=== PATIENT | male | born 1980 | race Caucasian/White ===

== ENCOUNTER 2017-05-16 08:08 | Inpatient (IN) | payer BC, OTHER ==
[~2017-05-16] VITALS: Ht 180.3 cm; Wt 72.6 kg
[~2017-05-16 08:08] MED LIST: DOXE50CA4 PO; GABA600T2 PO; PRAZ1CAP5 PO
[2017-05-19 14:42] LABS: *AMPHETAMINE, URINE POSITIVE (NEGATIVE); *BARBITURATE, URINE NEGATIVE (NEGATIVE); *CANNABINOID, URINE NEGATIVE (NEGATIVE); *COCCAINE, URINE NEGATIVE (NEGATIVE); *OPIATE, URINE NEGATIVE (NEGATIVE); *PHENCYCLIDINE SCREEN,URINE NEGATIVE (NEGATIVE)
[2017-05-19] MEDS ORDERED: LOPERAMIDE HCL 2 MG CAPSULE PO PRN ×2 (15:00)
[2017-05-19] MEDS ORDERED: METHOCARBAMOL 750 MG TABLET PO PRN (15:00)
[2017-05-19] MEDS ORDERED: THIAMINE HCL 200 MG/2 ML VIAL IM ONE (15:00)
[2017-05-19] MEDS ORDERED: DIAZEPAM 5 MG TABLET PO PRN (15:00)
[2017-05-19] MEDS ORDERED: IBUPROFEN 600 MG TABLET PO PRN (15:00)
[2017-05-19] MEDS ORDERED: ONDANSETRON 4 MG/2 ML VIAL IM PRN (15:00)
[2017-05-19] MEDS ORDERED: ACETAMINOPHEN 325 MG TABLET PO PRN (15:00)
[2017-05-19] MEDS ORDERED: DICYCLOMINE HCL 20 MG TABLET PO PRN (15:00)
[2017-05-19] MEDS ORDERED: CLONIDINE HCL 0.1 MG TABLET PO PRN (15:00)
[2017-05-19] MEDS ORDERED: BUPRENORPHINE HCL 2 MG TAB.SUBL SL PRN (15:00)
[2017-05-19] MEDS ORDERED: MIRALAX 17 GM POWD.PACK PO PRN (15:00)
[2017-05-19] MEDS ORDERED: ONDANSETRON ODT 4 MG TAB.RAPDIS SL PRN (15:00)
[2017-05-19] MEDS ORDERED: MAG HYDROX/AL HYDROX/SIMETH 30 ML LIQUID UDC PO PRN (15:00)
[2017-05-19] MEDS ORDERED: diphenhydrAMINE 50 MG CAPSULE PO PRN (15:00)
[2017-05-19] MEDS ORDERED: DIAZEPAM 10 MG TABLET PO PRN ×2 (15:00)
[2017-05-19] MEDS ORDERED: LORAZEPAM 2 MG/1 ML VIAL IM PRN (15:00)
--- NOTE | 2017-05-19 15:10 | NUR ---
PRE-ASSESSMENT: Pre-Assessment done at intake office, client is A/O x4, he presents with flat affect, anxious mood. Goose bumps, flushed face and moist skin. T 98, RR 18, BP 114/66, HR 94, spO2 @ 96% on RA, Pain generalized body aches 5/10. He is fully ambulatory. He denies any allergies; he denies any withdrawal-induced seizure. PMH: PTSD, Insomnia, Depression, Anxiety, tobbaco use. Past Surgical HX: Back Sx on 2012, Hernia repair at groin area on 2000 Medications taken at home Prazosin 2 mg HS PO Zoloft 50mg DAILY AM Doxepin 100mg HS PO Gabapentin 600 mg BID PO. Substance history buprenorphine 16 mg SL on a daily basis, last time used 05/18/17 @ 0430. Alcohol (vodka) 500 mL daily, last consumed 05/19/17 @ 0200. Ativan on an intermittent non-daily basis, last used 2 weeks ago. Methamphetamine IV smoked or snorted on a daily basis worth $50.00, last used on the day of present admission. PCP: Miguel Jacinto Discuss vital sighns Q4H, Urine drug screen and Blood drawn protocol, client verbalized understanding.
--- NOTE | 2017-05-19 15:35 | NUR ---
Admissions Note 37 year old male admitted to [facility] for withdrawal from alcohol, benzodiazepines, and buprenorphine. Client is oriented to unit, educated about protocols and how to work TV and call light in his room. Weight: 160 pounds. Height: 5'11" Client appears anxious, goose bumps and clammy skin, bilateral upper extremity with intact abcess over distal wrists at sites and R AC of IV drug use. Bilateral lung clear on auscultation, abdomen soft, non-tender, no edema noted. Clients voice is soft, he avoids eye contact. Client has NKA. Regular diet ordered. Full code status ordered. Client denies any history of seizures. LBM was 05/17/17, small/brown/hard. He refuses PNA vaccine at this time, stating he is afraid he might get sick because of it. He gives verbal consent for HIV. Client states that he lives with his in [place] Substance history buprenorphine 16 mg SL on a daily basis, last time used 05/18/17 @ 0430. Alcohol (vodka) 500 mL daily, last consumed 05/19/17 @ 0200. Ativan on an intermittent non-daily basis, last used 2 weeks ago. Methamphetamine IV smoked or snorted on a daily basis worth $50.00, last used on the day of present admission. He reports prior treatments here at [facility], last been May 30 to 2015, where he was discharged to [facility], he relapse shortle after. His longest period of sobriety was in 2016 for almost [address] Allen assessed client, Urine was collected upon admission. All safety measures instituted. Falll and seizure precaution. Call light within reach. Will continue to monitor.
[2017-05-19 16:00] VITALS: BP 119/73
[2017-05-19] MEDS: DIAZEPAM 10 MG TABLET PO SCH ×2 (16:28→21:00)
[2017-05-19] MEDS: BUPRENORPHINE HCL 2 MG TAB.SUBL SL SCH ×2 (16:30→21:00)
--- NOTE | 2017-05-19 19:30 | NUR ---
END OF SHIFT Client is in room, a/o x 4, he presents with anxious mood, flat affect. Last CIWA6/COWS 10 Call light within reach. He is on Fall, Seizure precautions. Endorsed to incoming nurse.
--- NOTE | 2017-05-19 19:31 | NUR ---
Start of shift note Received report from day shift nurse. Pt is a 37 yo male, A+Ox4, presenting to [facility] for Opiate/ETOH/Benzo/Meth dependence. Pt has NKA, is on Full Code status, and on Regular diet. Pt is on Fall and Seizure precautions. Pt has HX of PTSD, Insomnia, Depression, Back SX, and Groin area hernia repair. Pt is on 5 day Valium and 5 day Subutex tapers, tolerated well. No s/s of distress noted at this time. Respiations even and unlabored. Will continue to monitor.
[2017-05-19 20:11] VITALS: BP 118/73
[2017-05-19 20:26] LABS: BASOPHILS # (AUTO) 0.2 K/uL (0.0-8.0); BASOPHILS % (AUTO) 1.6 % (0.0-2.0); EOSINOPHILS # (AUTO) 0.2 K/uL (0.0-0.7); EOSINOPHILS % (AUTO) 2.4 % (0.0-7.0); HEMATOCRIT 39.9 % (40-50); HEMOGLOBIN 13.7 G/DL (14.0-18.0); LYMPHOCYTES # (AUTO) 3.2 K/UL (0.8-4.8); LYMPHOCYTES % (AUTO) 30.5 % (20.5-51.5); MEAN CORPUSCULAR HEMOGLOBIN 32.3 UUG (27.0-31.0); MEAN CORPUSCULAR HGB CONC 34 g/dL (32.0-37.0); MEAN CORPUSCULAR VOLUME 94.1 FL (82.0-92.0); MONOCYTES # (AUTO) 0.7 K/UL (0.1-1.30); MONOCYTES % (AUTO) 6.5 % (0.0-11.0); NEUTROPHILS # (AUTO) 6.1 K/UL (1.8-8.9); PLATELET COUNT (AUTO) 365 K/UL (150-450); RED BLOOD CELL COUNT(AUTO) 4.24 MIL/UL (4.7-6.1); WHITE BLOOD COUNT (AUTO) 10.4 K/UL (4.0-11.2)
[2017-05-19 20:32] LABS: ETHANOL < 3 MG/DL (0-0)
[2017-05-19 20:39] LABS: ALANINE AMINOTRANSFERASE 39 U/L (16-63); ALKALINE PHOSPHATASE 99 U/L (50-136); AMYLASE 43 U/L (25-115); ASPARTATE AMINOTRANSFERASE 42 U/L (15-37); BILIRUBIN,TOTAL 1.1 mg/dL (0.2-1.0); CARBON DIOXIDE 31 mmol/L (21-32); CHLORIDE 104 mmol/L (98-107); CREATININE 1.1 mg/dL (0.6-1.3); GLUCOSE 121 mg/dL (74-106); LIPASE 141 U/L (73-393); MAGNESIUM 2.1 mg/dL (1.8-2.4); POTASSIUM 3.5 mmol/L (3.5-5.1); TOTAL PROTEIN, SERUM 7.1 g/dL (6.4-8.2); UREA NITROGEN, BLOOD 19 mg/dL (7-18)
[2017-05-19] MEDS ORDERED: PATIENT MAY USE OWN MED- MD OK PO SCH ×2 (21:00)
[2017-05-20] MEDS: DOXEPIN 50 MG CAPSULE PO SCH ×2 (00:08→21:09)
[2017-05-20] MEDS: DOXYCYCLINE HYCLATE 100 MG TABLET PO SCH ×3 (00:08→21:09)
[2017-05-20] MEDS: GABAPENTIN 300 MG CAPSULE PO SCH ×4 (00:08→21:09)
[2017-05-20] MEDS: PRAZOSIN HCL 1 MG CAPSULE PO SCH ×2 (00:08→21:08)
[2017-05-20 00:14] VITALS: BP 107/66
--- NOTE | 2017-05-20 00:15 | NUR ---
PRN Subutex 4mg and Valium 10mg Pt c/o s/s of withdrawal with COWS: 12 and CIWA: 9. PRN Subutex 4mg and PRN Valium 10mg given and tolerated well. Will reassess within 1 HR. Will continue to monitor.
--- NOTE | 2017-05-20 01:11 | NUR ---
PRN Subutex 4mg and PRN Valium 10mg Reassessment Medications effective. Pt is resting well in bed. No s/s of ASE/distress noted at this time. Respirations even and unlabored. Will continue to monitor.
[2017-05-20 04:36] VITALS: BP 110/69
--- NOTE | 2017-05-20 07:00 | NUR ---
End of shift note Pt is a 37 yo male, A+Ox4, presenting to [facility] for Opiate/ETOH/Benzo/Meth dependence. Pt has NKA, is on Full Code status, and on Regular diet. Pt is on Fall and Seizure precautions. Pt has HX of PTSD, Insomnia, Depression, Back SX, and Groin area hernia repair. Pt is on 5 day Valium and 5 day Subutex tapers, tolerated well. Pt was given PRN Subutex 4mg and PRN Valium 10mg @0015. Pt slept for a total of 9 HRS. Last COWS: 3 and Last CIWA: 3 @0400. No s/s of distress noted at this time. Respirations even and unlabored. Will endorse to day shift nurse.
--- NOTE | 2017-05-20 08:00 | NUR ---
START OF SHIFT Rcvd endorsement from ongoing nurse, client is in room, a/o x4, he presents with anxious mood, flat affect, moist skin, flushed face. He reports restless legs, abdominal cramps and chills, no nausea or diarrhea. He denies any SI/HI. Client is on antibiotic PO therapy Vibramycin 100mg Q12H for infection on bilateral wrist and R AC. Encouraged client to increase fluid intake to facilitate detox. Encourage client to attend group therapy for skills to maintain sobriety. Client is a 37 yo male admitted for withdrawal from alcohol, benzodiazepines, and buprenorphine. He is on 5 day Diazepam / Subutex taper, tolerating well. Last CIWA 3 /COWS 3 @ 0400. He reports NKA, full code, regular diet. PRN @ 0015 Subutex 4mg and Valium 10mg for COWS 12, CIWA 9 respectively, noted effective COWS 3/CIWA3. Client slept 9 hrs. Client denies any history of withdrawal-induced seizure. He is on seizure precautions. Call light within reach. Side rails up x2/padded, bed locked and in low position.
[2017-05-20 08:14] VITALS: BP 107/75
[2017-05-20] MEDS: FOLIC ACID 1 MG TABLET PO SCH (08:27)
[2017-05-20] MEDS: MULTIVITAMINS,THERAPEUTIC TABLET PO SCH (08:27)
[2017-05-20] MEDS: DIAZEPAM 10 MG TABLET PO SCH ×3 (08:27→21:09)
[2017-05-20] MEDS: THIAMINE HCL 100 MG TABLET PO SCH (08:27)
[2017-05-20] MEDS: BUPRENORPHINE HCL 2 MG TAB.SUBL SL SCH ×3 (08:28→21:09)
--- NOTE | 2017-05-20 08:28 | NUR ---
TB administered to L forearm, client tolerated well.
[2017-05-20] MEDS ORDERED: TUBERCULIN,PURIF.PROT.DERIV. 5 TU/0.1 ML TEST ID ONE (09:00)
[2017-05-20] MEDS ORDERED: DIAZEPAM 10 MG TABLET PO SCH (09:00)
[2017-05-20] MEDS ORDERED: BUPRENORPHINE HCL 2 MG TAB.SUBL SL SCH (09:00)
[2017-05-20 12:55] VITALS: BP 108/61
--- NOTE | 2017-05-20 13:07 | NUR ---
MD Notification Client nodded off while sitting in bed, he hit his head on the drawer and got a superficial linear abrasion ~0.5cm L inner eyebrow, a couple of blood drops noted, cleanse with water, pat dry, client tolerated well.
[2017-05-20] MEDS: NEOMY/BACITRAC/POLYMI OINT 28.35 GM TUBE TOP SCH ×2 (13:34→16:01)
[2017-05-20 16:01] VITALS: BP 107/75
--- NOTE | 2017-05-20 17:10 | NUR ---
Dr. Allen and Dr. Jose notified of ECG results: Normal Sinus Rhythm. NNO at this time. Addendum: 05/20/17 at 1741 by ACACIA PICKERING RN wrong client
[2017-05-20] MEDS ORDERED: SERT50TA PO (17:23)
--- NOTE | 2017-05-20 18:57 | NUR ---
END OF SHIFT Client is a 37 yo male admitted for withdrawal from alcohol, benzodiazepines, and buprenorphine. He is on 5 day Diazepam / Subutex taper, tolerating well. Last CIWA 5 /COWS 6 @ 1600. Client reports some level of anxiety, chills and abdominal cramps. He reports NKA, full code, regular diet. Client is on triple antibiotic to L eyebrow superficial linear abrasion x 2 days. Client was not compliant with group therapy d/t withdrawal symptoms. Client denies any history of withdrawal-induced seizure. He is on seizure precautions. Call light within reach. Side rails up x2/padded, bed locked and in low position.
--- NOTE | 2017-05-20 19:15 | NUR ---
Start of shift note Received report from day shift nurse. Pt is a 37 yo male, A+Ox4, presenting to [facility] for Opiate/ETOH/Benzo/Meth dependence. Pt has NKA, is on Full Code status, and on Regular diet. Pt is on Fall and Seizure precautions. Pt has HX of PTSD, Insomnia, Depression, Back SX, and Groin area hernia repair. Pt is on 5 day Valium and 5 day Subutex tapers, tolerated well. No s/s of distress noted at this time. Respiations even and unlabored. Will continue to monitor.
[2017-05-20 20:10] VITALS: BP 106/73
[2017-05-21 00:28] VITALS: BP 124/73
[2017-05-21 04:29] VITALS: BP 118/71
--- NOTE | 2017-05-21 06:51 | NUR ---
End of shift note Pt is a 37 yo male, A+Ox4, presenting to [facility] for Opiate/ETOH/Benzo/Meth dependence. Pt has NKA, is on Full Code status, and on Regular diet. Pt is on Fall and Seizure precautions. Pt has HX of PTSD, Insomnia, Depression, Back SX, and Groin area hernia repair. Pt is on 5 day Valium and 5 day Subutex tapers, tolerated well. Pt slept for a total of 6 HRS. Last COWS: 1 and Last CIWA: 1 @0400. No s/s of distress noted at this time. Respirations even and unlabored. Will endorse to day shift nurse.
--- NOTE | 2017-05-21 07:15 | NUR ---
start of shift note: received pt from lime supervisor nurse, pt is in stable condition. no s/s of pain or discomfort. pt is admitted to [facility] for opiate/etoh/benzo withdrawal/dependence. pt's last cows 1 and ciwa 1. pt is tolerating taper medications well no a/r noted. will monitor pt for any changes and encourage pt to attend groups and activities
[2017-05-21 09:00] VITALS: BP 112/72
[2017-05-21] MEDS ORDERED: DIAZEPAM 10 MG TABLET PO SCH (09:00)
[2017-05-21] MEDS ORDERED: BUPRENORPHINE HCL 2 MG TAB.SUBL SL SCH ×2 (09:00)
[2017-05-21] MEDS: DIAZEPAM 5 MG TABLET PO SCH ×4 (09:18→21:19)
[2017-05-21] MEDS: THIAMINE HCL 100 MG TABLET PO SCH (09:18)
[2017-05-21] MEDS: FOLIC ACID 1 MG TABLET PO SCH (09:18)
[2017-05-21] MEDS: DOXYCYCLINE HYCLATE 100 MG TABLET PO SCH ×2 (09:18→21:19)
[2017-05-21] MEDS: SERTRALINE HCL 50 MG TABLET PO SCH (09:19)
[2017-05-21] MEDS: MULTIVITAMINS,THERAPEUTIC TABLET PO SCH (09:19)
[2017-05-21] MEDS: GABAPENTIN 300 MG CAPSULE PO SCH (09:19)
[2017-05-21] MEDS: NEOMY/BACITRAC/POLYMI OINT 28.35 GM TUBE TOP SCH (09:20)
--- NOTE | 2017-05-21 09:30 | NUR ---
PRN ADMINISTRATION: PT VERBALIZED HE IS NAUSEATED, AHKEEM BAILEY WAS ADMINISTRATED Addendum: 05/21/17 at 1926 by MAT BATEMAN RN ERROR: WRONG PT, THIS IS FOR PT IN 312
--- NOTE | 2017-05-21 10:30 | NUR ---
PRN RE-ASSESSMENT: PT VERBALIZED MEDICATION WAS EFFECTIVE, NO NAUSEA NOTED Addendum: 05/21/17 at 1927 by MAT BATEMAN RN ERROR IN CHARTING: FOR WRONG PT
[2017-05-21 11:10] LABS: HEPATITIS B SURFACE AG Negative (Negative)
[2017-05-21 12:30] VITALS: BP 119/80
[2017-05-21] MEDS: BUPRENORPHINE HCL 2 MG TAB.SUBL SL SCH ×2 (15:46→21:20)
[2017-05-21] MEDS: GABAPENTIN 400 MG CAPSULE PO SCH ×2 (15:46→21:18)
[2017-05-21 17:42] VITALS: BP 106/75
--- NOTE | 2017-05-21 19:00 | NUR ---
END OF SHIFT NOTE: PT IS IN STABLE CONDITION AT THIS TIME NO S/S OF PAIN OR DISCOMFORT. PT IS ADMITTED TO [facility] FOR OPIATE/ETOH/METH/BENZO WITHDRAWAL/DEPENDENCE. PT'S LAST COWS 3 AND CIWA 3. PT IS TOLERATING MEDICATIONS WELL. NO A/R NOTED WILL ENDORSE PT TO ENTRY LEVEL ACCOUNT EXECUTIVE NURSE.
--- NOTE | 2017-05-21 19:15 | NUR ---
START OF SHIFT Received 37 year old male patient admitted on 05/19/17 for ETOH, Ativan, Subutex and Methamphetamine dependency. Pt is full code with NKA. He reports a PMHx of PTDS, Insomnia, depression, tobacco use, surgical history, back surgery and hernia repair at groin area (2000). He reports Using Vodka 500 mg daily for 3 weeks. Last dose was 500 mL on 05/19/17. Ativan intermittently. Last dose was 2 weeks ago. Subutex 16 mg SL daily for 4 years. Last dose was 4 mg on 05/18/17. And Methamphetamine $50 (IV, S moke, Snort). Last dose was 05/19/17. Pt placed on 5 day Subutex and 5 day Valium taper started on 05/19/17 and tolerating well. Pt is alert and oriented x4, breathing is even and unlabored. Safety measures in place. Will continue to monitor.
[2017-05-21 20:00] VITALS: BP 101/75
[2017-05-21] MEDS: PRAZOSIN HCL 1 MG CAPSULE PO SCH (21:18)
[2017-05-21] MEDS: DOXEPIN 50 MG CAPSULE PO SCH (21:19)
--- NOTE | 2017-05-22 | NUR ---
VITALS REFUSED/COWS, CIWA DEFERRED 0000 vitals refused. COWS and CIWA deferred d/t pt lying in bed with eyes closed noted to be asleep. Respirations 16, breathing even and unlabored. Safety measures in place. Will continue to monitor.
--- NOTE | 2017-05-22 04:00 | NUR ---
VITALS REFUSED/COWS, CIWA DEFERRED 0400 vitals refused. COWS and CIWA deferred d/t pt lying in bed with eyes closed noted to be asleep. Respirations 16, breathing even and unlabored. Safety measures in place. Will monitor.
--- NOTE | 2017-05-22 07:13 | NUR ---
END OF SHIFT Pt is a 37 year old male patient admitted on 05/19/17 for ETOH, Ativan, Subutex and Methamphetamine dependency. Pt is full code with NKA. He reports a PMHx of PTDS, Insomnia, depression, tobacco use, surgical history, back surgery and hernia repair at groin area (2000). Pt continues on a 5 day Subutex and 5 day Valium taper started on 05/19/17 and tolerating well. He did not receive or request PRN medications. He slept a total of 8hrs, Intake: 795mL, Void: x1, BM:0, COWS:5, CIWA: 6. Pt remains alert and oriented x4, breathing is even and unlabored. Safety measures in place. Endorsed to oncoming shift.
--- NOTE | 2017-05-22 07:14 | NUR ---
Start of Shift Notes: Received patient in his room. Alert and verbally responsive. Oriented x 4. Able to make needs known. Respirations even and unlabored. No SOB noted. Skin warm and dry to touch. Abdomen soft and non-distended with (+) BS in all 4 quadrants. No complains of N/V/D or constipation noted. Voids independently. No complains of dysuria noted. Ambulatory ad gerard with steady gait. Patient is a 37 year old male admitted for opiate/ETOH dependence who was placed on a 5-day Valium and 5day Subutex taper as ordered. No adverse reactions noted. Taper was started on 05/19/2017. Has past medical hx of PTSD, insomnia, depression, back surgeries and hernia repair. Prior to admission, patient was using 16 mg of Subutex SL, and 500cc of Vodka, intermittent use of Ativan and $50.00 worth of Methamphetamine daily. NKA. FULL CODE. Regular diet. On fall and seizure precautions. On Vibramycin as ordered for biilaterl wrist and right AC cellulitis. Educated patient on the current plan of care for the day and her medication regimen. Encouraged oral fluid intake and encouraged group participation to learn new skills to prevent relapse. Siderails up and padded for safety. Call light kept in reach. Will continue to monitor closely.
[2017-05-22 08:00] VITALS: BP 116/74
[2017-05-22] MEDS: MULTIVITAMINS,THERAPEUTIC TABLET PO SCH (08:10)
[2017-05-22] MEDS: THIAMINE HCL 100 MG TABLET PO SCH (08:10)
[2017-05-22] MEDS: DOXYCYCLINE HYCLATE 100 MG TABLET PO SCH ×2 (08:10→21:39)
[2017-05-22] MEDS: GABAPENTIN 400 MG CAPSULE PO SCH ×2 (08:10→14:15)
[2017-05-22] MEDS: BUPRENORPHINE HCL 2 MG TAB.SUBL SL SCH ×3 (08:10→21:40)
[2017-05-22] MEDS: SERTRALINE HCL 50 MG TABLET PO SCH (08:11)
[2017-05-22] MEDS: DIAZEPAM 5 MG TABLET PO SCH ×3 (08:11→21:39)
[2017-05-22] MEDS: FOLIC ACID 1 MG TABLET PO SCH (08:15)
[2017-05-22] MEDS ORDERED: DIAZEPAM 5 MG TABLET PO SCH (09:00)
[2017-05-22] MEDS ORDERED: BUPRENORPHINE HCL 2 MG TAB.SUBL SL SCH ×2 (09:00→15:00)
[2017-05-22 12:00] VITALS: BP 123/78
[2017-05-22] MEDS ORDERED: HYDROXYZINE PAMOATE 25 MG CAPSULE PO PRN (15:30)
[2017-05-22] MEDS ORDERED: KETOROLAC TROMETHAMINE 30 MG INJ IM PRN (15:30)
[2017-05-22 16:00] VITALS: BP 115/86
--- NOTE | 2017-05-22 19:15 | NUR ---
START OF SHIFT Received 37 year old male patient admitted on 05/19/17 for ETOH, Ativan, Subutex and Methamphetamine dependency. Pt is full code with NKEmanuel. He reports a PMHx of PTSD, Insomnia, depression, tobacco use, [facility] He reports Using Vodka 500 mg daily for 3 weeks. Last dose was 500 mL on 05/19/17. Ativan intermittently. Last dose was 2 weeks ago. Subutex 16 mg SL daily for 4 years. Last dose was 4 mg on 05/18/17. And Methamphetamine $50 (IV, Smoke, Snort). Last dose was 05/19/17. Pt placed on 5 day Subutex and 5 day Valium taper started on 05/19/17 and tolerating well. Per endorsement, pt did not receive or request PRN medications. Pt is alert and oriented x4, breathing is even and unlabored. Safety measures in place. Will continue to monitor.
--- NOTE | 2017-05-22 19:17 | NUR ---
End of Shift Notes: Patient continues to be on 5-day Subutex and 5-day Valium taper as ordered. No adverse reactions noted. Patient is tolerating taper well. VS monitored closely q 4 hours. No significant abnormalities noted. Withdrawal symptoms were closely monitored. Patient presented with gross tremors, anxiety, nervousness, and muscle aches. Initial COWS 7/CIWA 7. Per patient, Subutex and Valium has been helping him with his withdrawal symptoms. Last COWS 4/CIWA 4. Compliant with care and treatment. Able to participate in activities and therapy sessions despite his withdrawal symptoms. Continues to be on Vibramycin as ordered for cellulitis to bilateral wrist. All needs met and attended. Call light kept in reach. Will continue to monitor.
[2017-05-22 20:00] VITALS: BP 109/80
[2017-05-22] MEDS: PRAZOSIN HCL 1 MG CAPSULE PO SCH (21:38)
[2017-05-22] MEDS: GABAPENTIN 300 MG CAPSULE PO SCH (21:38)
[2017-05-22] MEDS: DICYCLOMINE HCL 20 MG TABLET PO SCH (21:39)
[2017-05-22] MEDS: CLONIDINE HCL 0.1 MG TABLET PO SCH (21:39)
[2017-05-22] MEDS: DOXEPIN 50 MG CAPSULE PO SCH (21:40)
[2017-05-22] MEDS: BACLOFEN 10 MG TABLET PO SCH (21:40)
--- NOTE | 2017-05-23 04:00 | NUR ---
VITALS REFUSED/COWS, CIWA DEFERRED 0400 vitals refused. COWS and CIWA deferred d/t pt lying in bed with eyes closed noted to be asleep. Respirations 16, breathing even and unlabored. Safety measures in place. Will continue to monitor.
--- NOTE | 2017-05-23 07:10 | NUR ---
END OF SHIFT Pt is a 37 year old male patient admitted on 05/19/17 for ETOH, Ativan, Subutex and Methamphetamine dependency. Pt is full code with NKA. He reports a PMHx of PTSD, Insomnia, depression, tobacco use, surgical history, back surgery and hernia repair at groin area (2000). Pt continues on 5 day a Subutex and 5 day Valium taper started on 05/19/17 and tolerating well. Pt did not receive or request PRN medications. He slept a total of 7 hrs, Intake: 1500mL, Void: x2, BM:0. COWS: 5, CIWA: 4. Pt remains alert and oriented x4, breathing is even and unlabored. Safety measures in place. Endorsed to oncoming shift.
[2017-05-23 08:00] VITALS: BP 118/79
[2017-05-23] MEDS: DIAZEPAM 5 MG TABLET PO SCH ×2 (08:17→20:49)
[2017-05-23] MEDS: CLONIDINE HCL 0.1 MG TABLET PO SCH ×2 (08:17→20:49)
[2017-05-23] MEDS: BUPRENORPHINE HCL 2 MG TAB.SUBL SL SCH ×2 (08:17→20:49)
[2017-05-23] MEDS: BACLOFEN 10 MG TABLET PO SCH ×3 (08:17→20:49)
[2017-05-23] MEDS: SERTRALINE HCL 50 MG TABLET PO SCH (08:18)
[2017-05-23] MEDS: THIAMINE HCL 100 MG TABLET PO SCH (08:18)
[2017-05-23] MEDS: MULTIVITAMINS,THERAPEUTIC TABLET PO SCH (08:18)
[2017-05-23] MEDS: GABAPENTIN 300 MG CAPSULE PO SCH ×3 (08:18→20:48)
[2017-05-23] MEDS: FOLIC ACID 1 MG TABLET PO SCH (08:18)
[2017-05-23] MEDS: DICYCLOMINE HCL 20 MG TABLET PO SCH ×3 (08:18→20:49)
[2017-05-23] MEDS: DOXYCYCLINE HYCLATE 100 MG TABLET PO SCH ×2 (08:18→20:49)
[2017-05-23] MEDS ORDERED: DIAZEPAM 5 MG TABLET PO SCH (09:00)
[2017-05-23] MEDS ORDERED: BUPRENORPHINE HCL 2 MG TAB.SUBL SL SCH (09:00)
[2017-05-23 12:00] VITALS: BP 95/63
[2017-05-23 16:00] VITALS: BP 112/63
--- NOTE | 2017-05-23 18:59 | NUR ---
End of Shift Notes: Patient continues to be on 5-day Subutex and 5-day Valium taper as ordered. No adverse reactions noted. Patient is tolerating taper well. VS monitored closely q 4 hours. No significant abnormalities noted. Withdrawal symptoms were closely monitored. Patient presented with fine tremors, anxiety, nervousness, and muscle aches. Initial COWS 5/CIWA 3. Per patient, Subutex and Valium has been helping him with his withdrawal symptoms. Last COWS 4/CIWA 2. Compliant with care and treatment. Able to participate in activities and therapy sessions despite his withdrawal symptoms. Continues to be on Vibramycin as ordered for cellulitis to bilateral wrist. All needs met and attended. Call light kept in reach. Will continue to monitor.
--- NOTE | 2017-05-23 19:11 | NUR ---
Start of shift note Received report from day shift nurse. Pt is a 37 yo male, A+Ox4, presenting to [facility] for Opiate/ETOH/Benzo/Meth dependence. Pt has NKA, is on Full Code status, and on Regular diet. Pt is on Fall and Seizure precautions. Pt has HX of PTSD, Insomnia, Depression, Back SX, and Groin area hernia repair. Pt is on 5 day Valium and 5 day Subutex tapers, tolerated well. No s/s of distress noted at this time. Respiations even and unlabored. Will continue to monitor.
[2017-05-23 20:32] VITALS: BP 111/75
[2017-05-23] MEDS: PRAZOSIN HCL 1 MG CAPSULE PO SCH (20:48)
[2017-05-23] MEDS: DOXEPIN 50 MG CAPSULE PO SCH (20:49)
[2017-05-24 00:16] VITALS: BP 119/73
[2017-05-24 04:04] VITALS: BP 114/71
--- NOTE | 2017-05-24 07:01 | NUR ---
End of shift note Pt is a 37 yo male, A+Ox4, presenting to [facility] for Opiate/ETOH/Benzo/Meth dependence. Pt has NKA, is on Full Code status, and on Regular diet. Pt is on Fall and Seizure precautions. Pt has HX of PTSD, Insomnia, Depression, Back SX, and Groin area hernia repair. Pt is on 5 day Valium and 5 day Subutex tapers, tolerated well. Pt slept for a total of 8 HRS. Last COWS: 3 and Last CIWA: 2 @0400. No s/s of distress noted at this time. Respirations even and unlabored. Will endorse to day shift nurse.
--- NOTE | 2017-05-24 07:49 | NUR ---
BEGINNING OF SHIFT Patient endorsement report received from night coordinator nurse, all pertinent information discussed. Patient with admitting Dx: ETOH/BZO/Opiate dependence, and substance use of Methamphetamine. Under close observation, Patient with ongoing 5 day Subutex taper and 5 day Valium taper as ordered, will continue to monitor closely. patient was administered no PRNs during night coordinator. patient slept 8 hours. with last cow score of: 3, and last ciwa score of: 2. Fall and seizure precautions observed and in place. safety measures in place. will continue to monitor closely. Patient received in room, alert and oriented x4, educated regarding plan of care for the day and medication regimen with good verbal understanding. Will continue to monitor.
[2017-05-24 08:47] VITALS: BP 118/75
[2017-05-24] MEDS: THIAMINE HCL 100 MG TABLET PO SCH (08:50)
[2017-05-24] MEDS: FOLIC ACID 1 MG TABLET PO SCH (08:50)
[2017-05-24] MEDS: SERTRALINE HCL 50 MG TABLET PO SCH (08:50)
[2017-05-24] MEDS: DICYCLOMINE HCL 20 MG TABLET PO SCH ×3 (08:50→20:15)
[2017-05-24] MEDS: BACLOFEN 10 MG TABLET PO SCH ×3 (08:50→20:15)
[2017-05-24] MEDS: MULTIVITAMINS,THERAPEUTIC TABLET PO SCH (08:50)
[2017-05-24] MEDS: GABAPENTIN 300 MG CAPSULE PO SCH ×3 (08:50→20:15)
[2017-05-24] MEDS: DOXYCYCLINE HYCLATE 100 MG TABLET PO SCH ×2 (08:50→20:15)
[2017-05-24] MEDS: CLONIDINE HCL 0.1 MG TABLET PO SCH ×2 (08:51→20:15)
[2017-05-24] MEDS ORDERED: DIAZEPAM 5 MG TABLET PO SCH ×2 (09:00)
[2017-05-24] MEDS ORDERED: BUPRENORPHINE HCL 2 MG TAB.SUBL SL SCH ×2 (09:00)
[2017-05-24 13:18] VITALS: BP 111/62
[2017-05-24 16:01] LABS: *AMPHETAMINE, URINE NEGATIVE (NEGATIVE); *BARBITURATE, URINE NEGATIVE (NEGATIVE); *CANNABINOID, URINE NEGATIVE (NEGATIVE); *COCCAINE, URINE NEGATIVE (NEGATIVE); *OPIATE, URINE NEGATIVE (NEGATIVE); *PHENCYCLIDINE SCREEN,URINE NEGATIVE (NEGATIVE)
[2017-05-24 17:18] VITALS: BP 109/74
[2017-05-24] MEDS ORDERED: GABA-534 PO (18:09)
[2017-05-24] MEDS ORDERED: BACL10TA PO (18:09)
[2017-05-24] MEDS ORDERED: DOXY100T2 PO (18:09)
[2017-05-24] MEDS ORDERED: CLON0.1T14 PO (18:09)
[2017-05-24] MEDS ORDERED: DICY20TA28 PO (18:09)
--- NOTE | 2017-05-24 18:51 | NUR ---
END OF SHIFT Patient alert and oriented x4, vital signs were stable during shift. Patient with admitting Dx: Opiate/etoh/bzo dependence, patient continues on a 5 day Subutex taper, as ordered, patient currently on day 5 of taper, well tolerated, no ASE noted. Patients last dose of detox medications were administered during shift. Patient compliant with therapeutic plan of care. Patient continues under close observation. 0900 assessment patient presented with: heart rate of: 81, c/o chills, mild bone and joint aches, tremors that can be felt but not seen, mild anxiety and barely sweating with cow score of: 5 and ciwa score fo: 3. 1300 assessment patient presented with: Heart rate of 90, tremors that can be felt but not seen, and mild anxiety with cow score of: 3 and ciwa score of: 2; 1700 assessment patient presented with: heart rate of:90, tremors that can be felt but not seen, and mild anxiety with cow score of: 3 and ciwa score of: 2.. Detox medications effective at reducing withdrawal symptoms. Patient is scheduled to be discharged tomorrow, noted self motivated towards sobriety. Encouraged adequate PO fluid intake as tolerated. During shift patient received no PRN medications. Patient denies any SI/HI. Encouraged patient to attend group therapies/sessions to learn new coping skills to prevent relapse/ Vital signs were stable during shift. Safety measures in place. Will continue to monitor.
--- NOTE | 2017-05-24 19:17 | NUR ---
Start of shift note Received report from day shift nurse. Pt is a 37 yo male, A+Ox4, presenting to [facility] for Opiate/ETOH/Benzo/Meth dependence. Pt has NKA, is on Full Code status, and on Regular diet. Pt is on Fall and Seizure precautions. Pt has HX of PTSD, Insomnia, Depression, Back SX, and Groin area hernia repair. Pt has completed 5 day Valium and 5 day Subutex tapers, tolerated well, and is due for discharge tomorrow. No s/s of distress noted at this time. Respiations even and unlabored. Will continue to monitor.
[2017-05-24 20:15] VITALS: BP 116/68
[2017-05-24] MEDS: PRAZOSIN HCL 1 MG CAPSULE PO SCH (20:15)
[2017-05-24] MEDS: DOXEPIN 50 MG CAPSULE PO SCH (20:15)
[2017-05-25 00:36] VITALS: BP 116/68
[2017-05-25 04:14] VITALS: BP 114/65
--- NOTE | 2017-05-25 06:49 | NUR ---
End of shift note Pt is a 37 yo male, A+Ox4, presenting to [facility] for Opiate/ETOH/Benzo/Meth dependence. Pt has NKA, is on Full Code status, and on Regular diet. Pt is on Fall and Seizure precautions. Pt has HX of PTSD, Insomnia, Depression, Back SX, and Groin area hernia repair. Pt has completed 5 day Valium and 5 day Subutex tapers, tolerated well, and is due for discharge today. Pt slept for a total of 7 HRS. Last COWS: 3 and Last CIWA: 2 @0400. No s/s of distress noted at this time. Respirations even and unlabored. Will endorse to day shift nurse.
--- NOTE | 2017-05-25 07:00 | NUR ---
start of shift note: received pt from night supervisor nurse, pt is in stable condition no s/s of pain or discomfort. pt is admitted to [facility] for opiate/etoh/benzo/opiate/meth withdrawal/dependence. pt is set to discharge today will assist pt in discharging and will continue to monitor pt for any changes.
[2017-05-25] MEDS: DICYCLOMINE HCL 20 MG TABLET PO SCH (08:59)
[2017-05-25] MEDS: THIAMINE HCL 100 MG TABLET PO SCH (08:59)
[2017-05-25] MEDS: FOLIC ACID 1 MG TABLET PO SCH (08:59)
[2017-05-25] MEDS: SERTRALINE HCL 50 MG TABLET PO SCH (08:59)
[2017-05-25] MEDS: MULTIVITAMINS,THERAPEUTIC TABLET PO SCH (08:59)
[2017-05-25] MEDS: BACLOFEN 10 MG TABLET PO SCH (08:59)
[2017-05-25] MEDS: CLONIDINE HCL 0.1 MG TABLET PO SCH (08:59)
[2017-05-25] MEDS: DOXYCYCLINE HYCLATE 100 MG TABLET PO SCH (08:59)
[2017-05-25] MEDS: GABAPENTIN 300 MG CAPSULE PO SCH (08:59)
--- NOTE | 2017-05-25 09:46 | NUR ---
discharge note: pt left the unit in stable condition no s/s of pain or discomfort or any withdrawal symptoms. pt teaching administered and pt verbalized understanding. pt's personal belongings were returned and pt will be transferred to [facility] via own transportation
== END 2017-05-25 09:45 | disposition home or self-care (01) | DRG 895 ==
LOC: SRC 05-19 14:16
PROVIDERS: ADMIT Internal Medicine; ATTEND Internal Medicine
PROC: HZ2ZZZZ Detoxification Services for Substance Abuse Treatment (ICD-10-PCS; principal; 2017-05-19)
PROC: HZ41ZZZ Group Counseling for Substance Abuse Treatment, Behavioral (ICD-10-PCS; 2017-05-20)
DX: F10.230 Alcohol dependence with withdrawal, uncomplicated (principal); F15.221 Other stimulant dependence with intoxication delirium; K70.10 Alcoholic hepatitis without ascites; F11.23 Opioid dependence with withdrawal; S61.531S Puncture wound without foreign body of right wrist, sequela; F32.9 Major depressive disorder, single episode, unspecified; D63.8 Anemia in other chronic diseases classified elsewhere; L03.114 Cellulitis of left upper limb; L03.113 Cellulitis of right upper limb; F15.288 Other stimulant dependence with other stimulant-induced disorder; Y90.9 Presence of alcohol in blood, level not specified; Z81.1 Family history of alcohol abuse and dependence; Z81.8 Family history of other mental and behavioral disorders; F43.10 Post-traumatic stress disorder, unspecified; Z65.3 Problems related to other legal circumstances; Z79.899 Other long term (current) drug therapy; S61.532S Puncture wound without foreign body of left wrist, sequela; X78.8XXS Intentional self-harm by other sharp object, sequela; E86.0 Dehydration; G47.00 Insomnia, unspecified; G89.4 Chronic pain syndrome; F17.210 Nicotine dependence, cigarettes, uncomplicated; G62.9 Polyneuropathy, unspecified
CPT/HCPCS: 36415; 70030-TC; 80307; 80324; 80346; 83690; 83735; 85025; 86580; 86592; 86705; 86803; 87340; 87806; G0480; J3411; J8499